=== PATIENT | male | born 1970 | race Caucasian/White ===

== ENCOUNTER 2020-08-17 09:25 | Emergency (ER) | payer OTHER ==
[~2020-08-17] VITALS: Ht 188 cm; Wt 98.4 kg
[2020-08-17 09:57] LABS: URINE BLOOD TRACE (Negative); URINE CLARITY CLEAR; URINE COLOR DARK YELLOW; URINE GLUCOSE-RANDOM NEGATIVE (Negative); URINE KETONES TRACE (Negative); URINE LEUKOCYTES-REFLEX NEGATIVE (Negative); URINE NITRITE-REFLEX NEGATIVE (Negative); URINE PROTEIN 1+ (Negative); URINE SPECIFIC GRAVITY >= 1.030 (1.005-1.030); URINE UROBILINOGEN 0.2 E.U./dl (0.2-1.0)
[2020-08-17 09:58] LABS: ICTOTEST (BILI CONFIRMATORY) Negative (Negative); URINE BILIRUBIN 1+ (Negative)
[2020-08-17] MEDS ORDERED: FLOMAX0.4 MG PO (10:18)
[2020-08-17] MEDS ORDERED: CIPROFLOXACIN500 M1 PO (10:18)
[2020-08-17 10:27] VITALS: BP 130/82
== END 2020-08-17 10:28 | disposition home or self-care (01) ==
LOC: M.ERS 09:25
PROVIDERS: Family Medicine
DX: N41.9 Inflammatory disease of prostate, unspecified (principal)